=== PATIENT | male | born 1950 | race African-American/Black ===

== ENCOUNTER 2023-07-01 13:02 | Emergency (ER) | payer MEDICAID ==
[~2023-07-01] VITALS: Ht 180.3 cm; Wt 91.0 kg
[2023-07-01 13:20] VITALS: BP 121/58; PULSE 69; RESP 18; TEMP 98; O2SAT 67
[2023-07-01 15:13] LABS: CARBON DIOXIDE 29 mEq/L (21-32); CHLORIDE 105 mEq/L (98-107); GLUCOSE 111 mg/dL (70-105); POTASSIUM 3.2 mEq/L (3.5-5.1); SODIUM 142 mEq/L (136-145); UREA NITROGEN BLOOD 12 mg/dL (9-23)
[2023-07-01] MEDS ORDERED: POTASSIUM CHLORIDE 20MEQ TABLET SR PO ONE (16:00)
== END 2023-07-01 17:12 | disposition home or self-care (01) ==
LOC: ER 13:17
DX: E87.6 Hypokalemia (principal); M79.671 Pain in right foot; M79.672 Pain in left foot; I25.2 Old myocardial infarction; I10 Essential (primary) hypertension
CPT/HCPCS: 36415; 73630; 80048; 99284